=== PATIENT | male | born 1985 | race Caucasian/White ===

== ENCOUNTER 2016-08-20 13:01 | Emergency (ER) | payer SELFPAY ==
[~2016-08-20] VITALS: Ht 177.8 cm; Wt 96.9 kg
[2016-08-20] MEDS ORDERED: 0.9% Sodium Chloride 1,000 ML IV ONE (13:02)
[2016-08-20 13:17] VITALS: BP 123/79; PULSE 91; RESP 16; O2SAT 97
[2016-08-20 14:04] LABS: BASOPHILS % (AUTO) 0.2 % (0-3); EOSINOPHILS % (AUTO) 1.2 % (0-5); MONOCYTES % (AUTO) 16.4 % (4-12); Mean Corpuscular Hemoglobin 30.3 pg (27.0-35.0); Mean Corpuscular Volume 82.2 fL (81-100); NEUTROPHILS % (AUTO) 47.3 % (40-74); Platelet Count 202 bil/L (150-400)
--- NOTE | 2016-08-20 14:05 | ED.REPORT ---
HPI-Abd Pain M Under 40 Date of Service August 20, 2016 ED Provider: Zackery Howell MD Patient is a 30 year old male who presents to the ED complaining of abdominal pain onset 5 days ago. Associated symptoms include nausea, hematochezia, fever, chills, achy joints, decreased appetite and diarrhea every two hours for the past three days that is slowly improving. He denies vomiting. Patient reports that he was seen earlier today at the walk in clinic in [place], who recommended he come to the ED due to blood on a rectal exam. He states that no one else at home is sick and he hasn't eaten anything unusual. Nursing Notes Stated Complaint: ABDOMINAL PAIN/POSSIBLE INFECTION Chief Complaint: Male Abdominal Pain Nursing Notes Reviewed: Yes Allergies: Coded Allergies: codeine (Verified Allergy, sury Roman, 08/20/16) General Time Seen by MD: 13:30 Chief Complaint Abdominal pain Hx Obtained From: Patient Arrived By: Walk-in Sudden in Onset?: Yes Onset Occurred: 5 days ago Symptom Duration: Since onset Associated with: Reports: Fever, Hematochezia, Nausea, Denies: Vomiting Recent Healthcare: No recent doctor visit, No recent hospitalization Past Medical History Past Medical History none reported Smoking History Unknown if Ever Smoker Ambulatory Status Independent Review of Systems Review of Systems Note: decreased appetite Constitutional: Reports: Chills, Fever GI: Reports: Abdominal pain, Diarrhea, Hematochezia, Nausea, Denies: Vomiting Musculoskeletal: Reports: Joint pain Complete sys rev & neg: except as marked. Physical Exam Initial Vital Signs Vital Signs (First) Date Time Temp Pulse Resp B/P Pulse Ox O2 Delivery O2 Flow Rate FiO2 08/20/16 13:17 36.8 91 16 123/79 97 Room Air Initial VS: Reviewed General/Constitutional: Awake, Alert Respiratory / Chest: Atraumatic, No respiratory distress Cardiovascular: Heart rate NL, Regular rhythm, Heart sounds NL, No murmurs Abdomen: Atraumatic, Soft, Non-tender, No guarding, No rebound Back: Atraumatic, Full range of motion, Non-tender Head / Eyes: Atraumatic, Normocephalic, PERRL, EOMI Rectum / Perineum: Atraumatic, No gross blood mildly coag positive Neurologic: Oriented X3, Speech NL, No motor deficits, No sensory deficits Skin: Atraumatic, Color NL, No rash, Warm, Dry Psychiatric: Affect NL, Mood NL Interpretation & Diagnostics Lab Results Interpretation Result Diagram: 08/20/16 1350 08/20/16 1350 Test 08/20/16 13:50 08/20/16 13:58 White Blood Count 4.9th/mm3 (3.8-10.1) Red Blood Count 5.05mil/mm3 (4.40-5.80) Hemoglobin 15.3g/dL (13.8-17.2) Hematocrit 41.5% (41.0-50.0) Mean Corpuscular Volume 82.2fL (81-100) Mean Corpuscular Hemoglobin 30.3pg (27.0-35.0) Mean Corpuscular Hemoglobin Concent 36.9% (32.0-37.0) Red Cell Distribution Width 12.4% (12.3-15.4) Platelet Count 202bil/L (150-400) Neutrophils (%) (Auto) 47.3% (40-74) Lymphocytes (%) (Auto) 34.9% (14-46) Monocytes (%) (Auto) 16.4% (4-12) Eosinophils (%) (Auto) 1.2% (0-5) Basophils (%) (Auto) 0.2% (0-3) Sodium Level 139mEq/L (134-144) Potassium Level 3.8mEq/L (3.5-5.2) Chloride Level 100mEq/L (97-108) Carbon Dioxide Level 25mmol/L (18-29) Blood Urea Nitrogen 15mg/dL (6-20) Creatinine 0.81mg/dL (0.76-1.27) Estimat Glomerular Filtration Rate 119mL/min (>59) Glucose Level 97mg/dL (60-99) Calcium Level 9.3mg/dL (8.5-10.1) Magnesium Level 2.0mg/dL (1.6-2.6) Total Bilirubin 0.4mg/dL (0.0-1.2) Aspartate Amino Transf (AST/SGOT) 22U/L (0-50) Alanine Aminotransferase (ALT/SGPT) 39U/L (0-44) Alkaline Phosphatase 73U/L (25-150) Total Protein 6.9g/dL (6.4-8.4) Albumin 4.0g/dL (3.4-5.0) Lipase 31U/L (13-60) Hold Urine Received (Received) Re-Eval/Medical Decision Med Decision/Clinical Course 30-year-old male presenting with bloody diarrhea 5 days. He reports diarrhea 3 days then with small amount of blood the last two days. He reports the diarrhea is possibly slightly improving. Reports a fever several days ago which has resolved. Denies any abdominal pain today. Vital signs are stable. Labs are unremarkable. He is mildly guaiac positive but no gross blood in his stools. His abdomen is soft and completely nontender. Stool studies were sent. He will be called if he requires antibiotics. He was discharged home in good condition. Return precautions given. I did cruise counselor him about the bloody stools continue you may warrant a colonoscopy. He will follow-up with primary doctor. Re-Evaluation/Progress : Time of Eval: 15:25 Re-Evaluation/Progress Note: Discussed plan for discharge during initial interview. The patient understands and agrees to the plan for discharge. All questions were addressed. Counseled Regarding: Diagnosis, Lab results, Need for follow-up, When/why to return to ED Patient Discharge & Departure Primary Impression: Generalized abdominal pain Additional Impressions: Bloody diarrhea Gastroenteritis Disposition: Home Discharge Condition All VS Reviewed: Yes Condition: Stable Patient Instructions: Acute Abdominal Pain (ED), Acute Diarrhea (ED), Gastroenteritis (ED) Additional Instructions: Thank you for trusting us with your care today. Your labs looked reassuring. You most likely have an infection. We will send your stool sample out for further testing. We will call if the culture is positive and requires antibiotic treatment. Be sure to drink plenty of fluids and wash your hands since it might be contagious. Please follow up with your primary care physician next week. If you continue to have bloody stool, you may need to have a colonoscopy. Return to the emergency department if you develop any new or worsening symptoms including fever, vomiting, increasing abdominal pain,or other concerning symptoms. Referrals: [facility] Scribe Attestation Portions of this note were transcribed by Beth Hough. I, Dr. Michelle Judd personally performed the history, physical exam and medical decision-making; I reviewed and confirmed the accuracy of the information in the transcribed note. Signed by: Ara Angela, 08/20/16 and 1442 copies to: [facility] Zackery Howell MD August 20, 2016 14:05 Lotus Hough August 20, 2016 14:43
[2016-08-20 16:03] VITALS: BP 115/66; PULSE 84; O2SAT 97
== END 2016-08-20 16:05 | disposition home or self-care (01) ==
LOC: SED 13:01
DX: R10.84 Generalized abdominal pain (principal); R19.7 Diarrhea, unspecified; K52.9 Noninfective gastroenteritis and colitis, unspecified; Z88.5 Allergy status to narcotic agent
CPT/HCPCS: 36415; 80053; 83690; 83735; 85025; 87507; 96360; 99284; J7030